=== PATIENT | female | born 1965 | race African-American/Black ===

== ENCOUNTER → 2018-07-21 19:00 | Outpatient (CLI) | payer OTHER, SELFPAY ==
--- NOTE | 2018-07-21 | DI.MRI.S_ITS ---
PROCEDURE: MR CERVICAL SPINE WO CON INDICATIONS: PARKINSONS TECHNIQUE: Noncontrast sagittal T1 spin echo and T2 fast spin echo, sagittal STIR, foraminal oblique sagittal T2 fast spin echo, and axial gradient echo or T2 fast spin echo through the cervical spine. COMPARISON: [facility], MR, MR HEAD/BRAIN WO CON, 07/21/2018, 19:20. FINDINGS: Image quality: Diagnostic, with note made of motion artifact. Alignment and Curvature: There is straightening of the normal cervical lordosis. No focal AP alignment abnormality is seen. Bone Marrow: Marrow demonstrates normal overall signal. Spinal Cord: Visualized spinal cord has normal size and signal. No cerebellar tonsillar herniation. Paraspinous Soft Tissues: No paravertebral masses. Prevertebral soft tissues are normal in thickness. C2-C3: The disc height is well-preserved. Loss of disc signal is seen at this level. A mild degree of generalized disc osteophyte complex is seen. There is mild left-sided and no right-sided neural foraminal narrowing seen. No significant central canal narrowing is seen. C3-C4: Mild loss of disc height is seen. Loss of disc signal is seen. A moderate degree of generalized disc osteophyte complex is seen. Mild facet joint hypertrophy is seen. There is moderate to severe bilateral neural foraminal narrowing seen. Moderate to severe central canal narrowing is seen, with associated mass effect upon the ventral spinal cord, as on series 3 image 17. C4-C5: Mild to moderate disc osteophyte complex is seen. Moderate disc osteophyte complex is seen, which is eccentric to the left. Mild facet joint hypertrophy is seen. There is moderate to severe bilateral neural foraminal narrowing seen, left worse than right. Moderate to severe central canal narrowing is seen, with associated mass effect upon the ventral spinal cord, as on series 3 image 21. C5-C6: Mild loss of disc height is seen. Loss of disc signal is seen. Moderate disc osteophyte complex is seen. There is a left lateral recess disc osteophyte protrusion. A right foraminal disc osteophyte protrusion is also seen. [id number] facet hypertrophy is seen. There is moderate to severe bilateral neural foraminal narrowing seen, left worse than right. Moderate to severe central canal narrowing is seen, with associated mass effect upon the ventral spinal cord. C6-C7: Mild loss of disc height is seen. Loss of disc signal is seen. Moderate generalized disc osteophyte complex is seen. Mild facet joint hypertrophy is seen. Minimal to mild bilateral neural foraminal narrowing is seen. Mild central canal narrowing is seen. C7-T1: No significant abnormality is seen. IMPRESSION: Multiple levels of cervical spine degenerative change are seen, including moderate to severe central canal narrowing at C3-C4, C4-C5, and C5-C6. Dictated by: Robert Contreras M.D. on 07/22/2018 at 9:16 Approved by: Robert Contreras M.D. on 07/22/2018 at 9:21
--- NOTE | 2018-07-21 19:07 | DI.MRI.S_ITS ---
PROCEDURE: MR HEAD/BRAIN WO CON INDICATIONS: PARKINSONS DISEASE TECHNIQUE: Noncontrast axial T1 spin echo, axial T2 fast spin echo, sagittal and axial FLAIR, coronal T2 fast spin echo, axial gradient echo, axial diffusion and ADC through the brain. COMPARISON: [facility], MR, MR CERVICAL SPINE WO CON, 07/21/2018, 19:37. FINDINGS: Image quality: Excellent. CSF Spaces: Basal cisterns are patent. No extra-axial fluid collections. Ventricles are normal in size and shape. Brain: No intracranial masses or hemorrhage. Scattered foci of T2 hyperintensity are seen, including several juxtacortical foci. No involvement of the brainstem or the posterior fossa can be seen. Leblanc/white matter interface is normal. Brainstem appears normal. Diffusion-weighted images demonstrate no acute ischemic insult. No chronic ischemic insults. Normal intravascular flow voids are present. Skull and face: Calvarium has normal marrow signal. Orbits appear normal. Sinuses: Sinuses and mastoids are clear. IMPRESSION: Several white matter hyperintense foci are seen. In a patient of this age, this statistically most likely relates to early chronic small vessel ischemic change. However, several juxtacortical lesions are seen, which is commonly seen in patients with multiple sclerosis. Please correlate with physical examination findings, patient presentation, and laboratory values. Dictated by: Robert Contreras M.D. on 07/22/2018 at 9:13 Approved by: Robert Contreras M.D. on 07/22/2018 at 9:16
== END ==
PROVIDERS: Visit Provider Psychiatry & Neurology Neurology
DX: G20 Parkinson's disease (principal); M47.812 Spondylosis without myelopathy or radiculopathy, cervical region
CPT/HCPCS: 70551; 72141

== ENCOUNTER → 2019-11-13 08:57 | Outpatient (CLI) | payer OTHER, SELFPAY ==
[2019-11-15 02:36] LABS: COVID19 Sendout Not Detected (Not Detect)
== END ==
PROVIDERS: PCP Emergency Medicine Emergency Medical Services; Visit Provider Physician Assistant
DX: Z01.818 Encounter for other preprocedural examination (principal)
CPT/HCPCS: 87635

== ENCOUNTER 2019-11-16 14:02 | Day surgery (SDC) | payer OTHER, SELFPAY ==
[2019-11-12 11:23] VITALS: BMI 28.2
[2019-11-16] VITALS (12 sets, daily range): BP systolic 114–147; BP diastolic 75–92; PULSE 62–94; RESP 12–18; TEMP 36.1–36.3; O2SAT 92–99; BMI 28.2
--- NOTE | 2019-11-16 | DI.RAD.S_ITS ---
PROCEDURE: XR LUMBAR SPINE 2-3V INDICATIONS: L5-S1 MICRODISCECTOMY (R) TECHNIQUE: Fluoroscopic images were obtained during an operative procedure and submitted for interpretation following the completion of the procedure. COMPARISON: None. FINDINGS: These fluoroscopic images were performed for intraoperative localization. On these images, there is a metallic probe seen overlying the L5-S1 level. Please correlate with intraoperative findings. IMPRESSION: Normal intraoperative examination. Dictated by: Robert Contreras M.D. on 11/16/2019 at 16:25 Approved by: Robert Contreras M.D. on 11/16/2019 at 16:26
[2019-11-16] MEDS: LACTATED RINGERS 1,000 ML 42 ML IV (14:50)
--- NOTE | 2019-11-16 15:17 | PM.PREOP ---
Pre-operative Note COVID-19 COVID-19 status: Negative Result date/Date tested (Pos, Neg/Pending): 11/14/19 Interval Note History & Physical reviewed/Exam performed by Physician: Yes Changes to H&P: No
[2019-11-16] MEDS: CEFAZOLIN 2 GM/100 ML FROZ.PIGGY IV (15:44)
--- NOTE | 2019-11-16 16:08 | SUR.OPER ---
Prone on spine table, head in foam head support, padded chest and pelvic supports, gel pad at knees, lower legs supported by pillows; nipples, genitalia and toes free of pressure, arms secured on foam padded arm boards at <90 degrees abduction. Tape over blanket at thigh secured to table.
[2019-11-16] MEDS: BUPIVACAINE 0.25% W/ EPI 30 ML VIAL INJ (16:12)
[2019-11-16] MEDS: methylPREDNISolone acet DEPO 40 MG/ML VIAL INJ (16:15)
--- NOTE | 2019-11-16 16:48 | PM.OP.1 ---
Operative Date/Time/Diagnoses Date of procedure: 11/16/19 Time of procedure: 15:48 Pre-op diagnosis: 1. L5-S1 disc herniation 2. Lumbar radiculopathy Post-op diagnosis: same Procedure & Clinicians Procedure: 1. L5-S1 right microdiscectomy 2. Utilization of microsurgical technique and operating microscope Same procedure as scheduled: Yes Indications: Patient has been having chronic back pain and worsening lumbar radiculopathy. Patient failed multiple conservative management with worsening pain weakness and numbness in her lower extremity. Patient has been having difficulty performing activity of daily living. After discussing risks benefits of treatment options, patient elected proceed with surgery. Surgeon: Monet Mariee Machine Package Sealer: Yasmin Kennedy Click Yes if Unassisted: No Anesthesia Type: General Operative Notes Closure Type: primary Specimen(s): none sent Estimated Blood Loss (mL): 10 Blood products transfused: none Procedure in detail: Patient was seen in the preoperative area. Risks and benefits of the surgery was discussed with the patient. Informed consent was obtained from the patient and placed in the chart. Surgical site was marked. Patient was taken to the operative room. General anesthesia was administered. Prophylactic antibiotic was given to the patient less than 30 min before the incision was made. Patient was placed into a prone position on the Radu table. Patient's back was then prepped and draped in the sterile fashion. Time-out was performed at this time. Using AP and lateral C-arm imaging the interval between L5-S1 was identified and marked on patient's back. A 1 inch incision 1 in from midline was made on the right side. The fascia was incised in line with skin incision. Globus MARS retractors was placed inside the incision and docked onto the L5 lamina. Using microsurgical technique and operating microscope, a L5 laminotomy was performed using a Kerrison rongeur. Liagamentum flavum was resected at the site of the laminotomy. The disc space at L5-S1 was identified. Microdiscectomy was performed by incising the annulus with #11 blade. Microcurettes and pituitary was used to removed herniated disc fragments of disc from the epidural space. Patient was found have multiple pieces of extruded disc in the epidural space. The disc fragments was carefully removed using pituitary. After the microdiskectomy was completed, the area medial lateral superior and inferior to the area of the microdiskectomy was inspected and explored using a micro curette. No other impinging structure was identified. The wound was then irrigated with sterile normal saline. 40 mg Depo-Medrol was placed into the epidural space. The deep fascia was closed with 1-0 Vicryl. The subcutaneous tissue was closed with 2-0 Vicryl. The skin was closed with skin miguel. Patient tolerated the procedure well. There were no complications. Patient was transferred recovery room in stable condition. Complications: none Post-operative Condition: stable Disposition: PACU Plan for aftercare: Discharge to home
[2019-11-16] MEDS: fentaNYL 100 MCG/2 ML INJ IV ×2 (17:00→17:06)
[2019-11-16] MEDS: OXYCODONE/ACETAMINOPHEN 5/325 TABLET 1 TAB PO ×2 (17:08→17:32)
== END 2019-11-16 19:00 | disposition home or self-care (01) ==
PROVIDERS: Referring Provider Orthopaedic Surgery Orthopaedic Surgery of the Spine; Visit Provider Orthopaedic Surgery Orthopaedic Surgery of the Spine
PROC: (CPT 63030; principal; 2019-11-16 15:30)
DX: M51.16 Intervertebral disc disorders with radiculopathy, lumbar region (principal); G20 Parkinson's disease
CPT/HCPCS: 63030; 72100; 76000; J0690; J1030; J1100; J2405; J2704; J3010